=== PATIENT | male | born 1940 | race Caucasian/White ===

== ENCOUNTER 2018-01-27 11:51 | Emergency (ER) | payer BC ==
[~2018-01-27] VITALS: Ht 175.3 cm; Wt 108.9 kg
[~2018-01-27 11:51] MED LIST: ASPERDRINK81 MG PO; ASPIRIN EC81 M1 PO; ASPIRIN81 M2 PO; ATORVASTATIN CA40 MG PO; BUTRANS1 EAC1 TD; CELEBREX 200 M200 M1 PO; CIALIS2.5 MG PO; CIPRO500 MG PO; COUMADIN 10MG T10 M1 PO; COUMADIN 5 MG TA5 M1 PO; COZAAR 50 MG TA50 M2 PO; CRESTOR10 MG PO; CYMBALTA60 MG PO; ENOXAPARIN80 MG/0.8 SQ; FISH OIL 1,001000 MG PO; FLONASE 0.05%50 MCG NASAL; GABAPENTIN PO; GLIPIZIDE ER5 MG PO; GLUCOPHAGE500 MG PO; GLUCOSAMINE1000 MG PO; HIGH POTENCY C600 MG PO; HYDROCODONE-AP1 EACH PO; HYDROCODONE-APA1 TA1 PO; IBUPROFEN 600600 M1 PO; JANTOVEN5 MG PO; MIRALAX17 GM PO; MYSOLINE50 MG PO; NAMENDA 10 MG T10 MG PO; NAMENDA 5 MG TAB5 M1 PO; NEURONTIN 300300 M1 PO; NEURONTIN600 MG PO; NORCO 5-325 TA1 EACH PO; OXYBUTYNIN 5 MG5 M2 PO; PAROXETINE HCL30 MG PO; PAXIL 20 MG TAB20 MG PO; PRIMIDONE50 MG PO; PROSCAR 5MG TABL5 M1 PO; PROTONIX40 M1 PO; PYRIDIUM200 MG PO; SLEEP AID50 MG PO; TAMSULOSIN HCL0.4 M1 PO; TOVIAZ8 MG PO; TRILEPTAL150 MG PO; TRILEPTAL300 MG PO; TYLENOL325 MG PO; VITAMIN B-121000 MCG PO; VITAMIN E1000 UNI2 PO; VOLTAREN GEL 1100 G1 TOP; [UNRECOGNIZED DRUG - CODE] PO
[2018-01-27 12:45] LABS: ABSOLUTE BASOPHILS 0.1 thou/uL (0.0-0.2); ABSOLUTE EOSINOPHILS 0.1 thou/uL (0.0-0.7); ABSOLUTE LYMPHOCYTES 1.5 thou/uL (0.8-5.3); ABSOLUTE MONOCYTES 0.7 thou/uL (0.0-1.2); ABSOLUTE NEUTROPHILS 5.4 thou/uL (1.6-8.1); BASOPHILS 0.9 %; EOSINOPHILS 1.6 %; HEMATOCRIT 42.8 % (42.0-52.0); HEMOGLOBIN 14.4 gm/dL (14.0-18.0); LYMPHOCYTES 19.1 %; MCHC 33.7 g/dL (28.0-37.0); MCV 97.8 fL (80.0-100.0); NUCLEATED RBCS 0 /100WBC; PLATELET COUNT* 219 thou/uL (150-400); POLYS 69.4 %; RBC 4.38 mil/uL (4.50-6.00); RDW-CV 13.7 % (10.5-14.5); WBC 7.8 thou/uL (4.0-11.0)
[2018-01-27 12:53] LABS: PROTIME 68.1 Seconds (9.20-11.50)
[2018-01-27 12:56] LABS: INR 7.2
[2018-01-27 13:02] LABS: CALCIUM 8.7 mg/dL (8.5-10.1); CREATININE 1.3 mg/dL (0.6-1.3); POTASSIUM 4.3 mmol/L (3.5-5.1)
[2018-01-27 13:07] LABS: ALBUMIN 3.1 g/dL (3.4-5.0); TOTAL BILIRUBIN 0.3 mg/dL (<0.1-1.0); TOTAL PROTEIN 7.3 g/dL (6.4-8.2)
[2018-01-27 13:15] LABS: URINE BILIRUBIN NEGATIVE (Negative); URINE BLOOD NEGATIVE (Negative); URINE CLARITY CLEAR; URINE COLOR YELLOW; URINE GLUCOSE-RANDOM 3+ (Negative); URINE KETONES NEGATIVE (Negative); URINE LEUKOCYTES-REFLEX NEGATIVE (Negative); URINE NITRITE-REFLEX NEGATIVE (Negative); URINE PROTEIN NEGATIVE (Negative); URINE UROBILINOGEN 0.2 E.U./dl (0.2-1.0)
[2018-01-27 14:48] VITALS: BP 154/76
== END 2018-01-27 14:49 | disposition home or self-care (01) ==
LOC: M.ERS 11:51
PROVIDERS: Nurse Practitioner Family
DX: K59.00 Constipation, unspecified (principal); R79.1 Abnormal coagulation profile; E11.9 Type 2 diabetes mellitus without complications; F98.8 Other specified behavioral and emotional disorders with onset usually occurring in childhood and adolescence; F17.210 Nicotine dependence, cigarettes, uncomplicated; Z88.0 Allergy status to penicillin; Z88.8 Allergy status to other drugs, medicaments and biological substances

== ENCOUNTER 2018-05-25 12:38 | Emergency (ER) | payer BC ==
[~2018-05-25] VITALS: Ht 172.7 cm; Wt 99.8 kg
[2018-05-25] MEDS ORDERED: LIPITOR80 MG PO (13:00)
[2018-05-25] MEDS ORDERED: PAXIL10 MG PO (13:05)
[2018-05-25] MEDS ORDERED: MYSOLINE50 MG PO (13:06)
[2018-05-25] MEDS ORDERED: COUMADIN 5 MG TA5 M1 PO ×2 (13:08)
[2018-05-25] MEDS ORDERED: TRAMADOL 50 MG50 MG PO (13:09)
[2018-05-25] MEDS ORDERED: LINZESS145 MCG PO (13:10)
[2018-05-25 15:04] VITALS: BP 138/74
== END 2018-05-25 15:05 | disposition home or self-care (01) ==
LOC: M.ERS 12:38
DX: S42.254A Nondisplaced fracture of greater tuberosity of right humerus, initial encounter for closed fracture (principal); E11.9 Type 2 diabetes mellitus without complications; F17.210 Nicotine dependence, cigarettes, uncomplicated; Z96.653 Presence of artificial knee joint, bilateral; Z88.0 Allergy status to penicillin; Z88.8 Allergy status to other drugs, medicaments and biological substances; W06.XXXA Fall from bed, initial encounter; Y93.89 Activity, other specified; Y92.092 Bedroom in other non-institutional residence as the place of occurrence of the external cause; Y99.8 Other external cause status

== ENCOUNTER 2018-10-02 14:14 | Inpatient (IN) | payer BC ==
[~2018-10-02] VITALS: Ht 172.7 cm; Wt 97.5 kg
[~2018-10-02 14:14] MED LIST changes: +LINZESS145 MCG PO; +LIPITOR80 MG PO; +PAXIL10 MG PO; +TRAMADOL 50 MG50 MG PO
[2018-10-02 14:28] VITALS: BP 137/66
[2018-10-02 15:24] LABS: ABSOLUTE BASOPHILS 0.1 thou/uL (0.0-0.2); ABSOLUTE EOSINOPHILS 0.1 thou/uL (0.0-0.7); ABSOLUTE LYMPHOCYTES 1.3 thou/uL (0.8-5.3); ABSOLUTE MONOCYTES 0.8 thou/uL (0.0-1.2); ABSOLUTE NEUTROPHILS 7.5 thou/uL (1.6-8.1); BASOPHILS 1.3 %; EOSINOPHILS 1.2 %; HEMATOCRIT 45.7 % (42.0-52.0); HEMOGLOBIN 15.3 gm/dL (14.0-18.0); LYMPHOCYTES 13.6 %; MCH 32.9 pg (26.0-34.0); MCHC 33.4 g/dL (28.0-37.0); MCV 98.4 fL (80.0-100.0); MONOCYTES 7.6 %; MPV 8.6 fl. (7.2-11.1); NUCLEATED RBCS 0 /100WBC; PLATELET COUNT* 203 thou/uL (150-400); POLYS 76.3 %; RBC 4.64 mil/uL (4.50-6.00); RDW-CV 14.3 % (10.5-14.5); WBC 9.9 thou/uL (4.0-11.0)
[2018-10-02 15:33] LABS: ANION GAP 13 mmol/L (7-16); BUN 19 mg/dL (7-18); CHLORIDE 98 mmol/L (98-107); CO2 23 mmol/L (21-32); CREATININE 1.2 mg/dL (0.6-1.3); GLUCOSE 414 mg/dL (70-99); POTASSIUM 4.8 mmol/L (3.5-5.1); SODIUM 134 mmol/L (136-145)
[2018-10-02 15:34] LABS: APTT 59.5 Seconds (25.0-31.3); INR 3.1; PROTIME 31.8 Seconds (9.20-11.50)
[2018-10-02 15:43] LABS: BE -3.6 mmol/L (-2 to +3); HCO3 19.4 mmol/L (22.0-26.0); PCO2 30.2 mmHg (35.0-45.0); pH 7.426 (7.340-7.450)
[2018-10-02 15:43] LABS: ALBUMIN 3.1 g/dL (3.4-5.0); ALKALINE PHOSPHATASE 84 U/L (46-116); NT-PRO BRAIN NAT PEPTIDE 1218 pg/mL (<300); SGOT 24 U/L (15-37); SGPT 20 U/L (30-65); TOTAL BILIRUBIN 0.5 mg/dL (<0.1-1.0); TOTAL PROTEIN 7.6 g/dL (6.4-8.2); TROPONIN-I LEVEL <0.06 ng/mL (<0.06)
[2018-10-02 15:44] LABS: PO2 58.2 mmHg (75.0-100.0)
--- NOTE | 2018-10-02 16:31 | EKG ---
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 GARCIA : 1940 Requested By: Nayeli Veloz Order Number: [id number] MD: Yaya Pacheco Measurements Intervals [place] Rate: 84 P: [place]: QRS: -40 QRSD: 114 T: 62 QT: 381 QTc: 451 Interpretive Statements Atrial fibrillation Left anterior fascicular block Abnormal R-wave progression, late transition Compared to ECG 01/26/2014 11:09:17 Left anterior fascicular block now present Left-axis deviation no longer present Intraventricular conduction delay no longer present Electronically Signed On 10-02-2018 16:31:33 WARP KNIT OPERATOR by Yaya Pacheco [email or web address] <ELECTRONICALLY SIGNED> By: Yaya Pacheco MD, FACC 10/02/18 1631 1458 1458 Yaya Pacheco MD, FAC /EPI
[2018-10-02 17:39] VITALS: BP 134/80
[2018-10-02 18:00] VITALS: BP 151/84
[2018-10-02 20:15] VITALS: BP 136/75
[2018-10-02] MEDS ORDERED: VITAMINC500 PO (20:23)
[2018-10-02] MEDS ORDERED: OMEGA-31000 M1 PO (20:23)
[2018-10-02] MEDS ORDERED: VITAMIN E400 UNIT PO (20:24)
[2018-10-02] MEDS ORDERED: OXYCODONE HCL10 MG PO (20:24)
[2018-10-02] MEDS ORDERED: ASPIR 8181 MG PO (20:24)
[2018-10-02] MEDS ORDERED: METFORMIN HCL500 MG PO (20:25)
[2018-10-02] MEDS ORDERED: PROSCAR 5MG TABL5 MG PO (20:25)
[2018-10-02] MEDS ORDERED: MYSOLINE50 MG PO (20:26)
[2018-10-02] MEDS ORDERED: COUMADIN 5 MG TA5 M1 PO ×3 (20:27→20:29)
[2018-10-02] MEDS ORDERED: GLUCOTROL5 MG PO (20:27)
[2018-10-02] MEDS ORDERED: LIPITOR80 MG PO (20:27)
[2018-10-02] MEDS ORDERED: PROTONIX40 M1 PO (20:27)
[2018-10-02] MEDS ORDERED: CYMBALTA60 MG PO (20:30)
[2018-10-02] MEDS ORDERED: PROPRANOLOL 1010 MG PO (20:30)
[2018-10-02] MEDS ORDERED: TRAMADOL 50 MG50 MG PO (20:30)
[2018-10-02] MEDS ORDERED: NORCO 5-325 TA1 EACH PO (20:31)
[2018-10-02] MEDS ORDERED: MELATONIN5 M1 PO (20:32)
[2018-10-02 22:11] LABS: ALBUMIN 2.9 g/dL (3.4-5.0); CALCIUM 8.8 mg/dL (8.5-10.1); CREATININE 1.1 mg/dL (0.6-1.3); PHOSPHORUS* 2.7 mg/dL (2.5-4.9); POTASSIUM 4.4 mmol/L (3.5-5.1)
[2018-10-03 01:07] VITALS: BP 136/71
[2018-10-03 04:00] VITALS: BP 147/77
[2018-10-03 06:17] LABS: ALBUMIN 2.8 g/dL (3.4-5.0); CALCIUM 8.4 mg/dL (8.5-10.1); CREATININE 1.1 mg/dL (0.6-1.3); POTASSIUM 4.3 mmol/L (3.5-5.1); TOTAL BILIRUBIN 0.5 mg/dL (<0.1-1.0); TOTAL PROTEIN 6.3 g/dL (6.4-8.2)
[2018-10-03 07:44] VITALS: BP 108/73
[2018-10-03 10:59] LABS: URINE BILIRUBIN NEGATIVE (Negative); URINE BLOOD NEGATIVE (Negative); URINE CLARITY CLEAR; URINE COLOR YELLOW; URINE GLUCOSE-RANDOM 2+ (Negative); URINE KETONES TRACE (Negative); URINE LEUKOCYTES-REFLEX NEGATIVE (Negative); URINE NITRITE-REFLEX NEGATIVE (Negative); URINE PROTEIN 1+ (Negative); URINE SPECIFIC GRAVITY 1.025 (1.005-1.030); URINE UROBILINOGEN 0.2 E.U./dl (0.2-1.0)
[2018-10-03 12:00] VITALS: BP 127/58
[2018-10-03 19:21] LABS: CALCIUM 8.4 mg/dL (8.5-10.1); CREATININE 1.2 mg/dL (0.6-1.3); POTASSIUM 3.9 mmol/L (3.5-5.1)
[2018-10-03 19:22] LABS: INR 3.3; PROTIME 33.8 Seconds (9.20-11.50)
[2018-10-03 20:15] VITALS: BP 118/55
[2018-10-04] VITALS: BP 131/70
[2018-10-04 04:00] VITALS: BP 118/53
[2018-10-04 05:08] LABS: ABSOLUTE BASOPHILS 0.1 thou/uL (0.0-0.2); ABSOLUTE EOSINOPHILS 0.1 thou/uL (0.0-0.7); ABSOLUTE LYMPHOCYTES 1.3 thou/uL (0.8-5.3); ABSOLUTE MONOCYTES 0.7 thou/uL (0.0-1.2); BASOPHILS 1.2 %; EOSINOPHILS 1.6 %; HEMATOCRIT 38.6 % (42.0-52.0); LYMPHOCYTES 15.5 %; MCHC 33.5 g/dL (28.0-37.0); MCV 98.5 fL (80.0-100.0); MONOCYTES 8.1 %; MPV 7.8 fl. (7.2-11.1); NUCLEATED RBCS 0 /100WBC; PLATELET COUNT* 185 thou/uL (150-400); POLYS 73.6 %; RBC 3.92 mil/uL (4.50-6.00); WBC 8.2 thou/uL (4.0-11.0)
[2018-10-04 05:18] LABS: HEMOGLOBIN 12.9 gm/dL (14.0-18.0)
[2018-10-04 05:37] LABS: ALBUMIN 2.5 g/dL (3.4-5.0); CALCIUM 8.2 mg/dL (8.5-10.1); CREATININE 1.1 mg/dL (0.6-1.3); POTASSIUM 4.2 mmol/L (3.5-5.1); TOTAL BILIRUBIN 0.5 mg/dL (<0.1-1.0); TOTAL PROTEIN 6.2 g/dL (6.4-8.2)
[2018-10-04 08:20] VITALS: BP 125/70
[2018-10-04 12:00] VITALS: BP 128/73
--- NOTE | 2018-10-04 15:15 | 2DMMODE ---
[place] [address] 2 D/M-MODE ECHOCARDIOGRAM Name: ENRICO LEÓN Room: [address] IN [facility]#: [id number] Admission: 10/02/18 Attend Phys: Oswaldo Nichole Discharge: Date of : 42 Date of Service: 10/04/18 1515 Report #: [id number] THIS REPORT FOR: //name// ADDENDUM APPROVED REPORT Study performed: 10/04/2018 11:56:27 EXAM: Comprehensive 2D, Doppler, and color-flow Echocardiogram Patient Location: In-Patient Room #: [facility] Status: routine BSA: 2.11 HR: 64 bpm BP: 125/70 mmHg Rhythm: Atrial Fibrillation Other Information Study Quality: Good Indications COPD Atrial Fibrillation Dyspnea 2D Dimensions IVSd: 17.48 (7-11mm) LVOT Diam: 21.97 (18-24mm) LVDd: 49.74 mm PWd: 14.83 (7-11mm) Ascending Ao: 42.34 (22-36mm) LVDs: 38.67 (25-40mm) Aortic Root: 35.11 mm Volumes Left Atrial Volume (Systole) LA ESV Index: 48.60 mL/m2 Aortic Valve AoV Peak Luigi.: 1.46 m/s AO Peak Gr.: 8.53 mmHg LVOT Max P.60 mmHg AO Mean Gr.: 5.00 mmHg LVOT Mean P.02 mmHg LVOT Max V: 0.95 m/s AO V2 VTI: 26.32 cm LVOT Mean V: 0.66 m/s HANNA (VTI): 2.65 cm2 LVOT V1 VTI: 18.39 cm Mitral Valve MV Decel. Time: 160.19 [place] [address] 2 D/M-MODE ECHOCARDIOGRAM Name: ENRICO LEÓN Room: [address] IN ..#: [id number] Admission: 10/02/18 Attend Phys: Oswaldo Nichole Discharge: Date of : 42 Date of Service: 10/04/18 1515 Report #: [id number] MV PHT: 46.46 ms MVA (PHT): 4.74 cm2 TDI Medial E' Luigi.: 0.09 m/s Lateral E' Luigi.: 0.12 m/s Pulmonary Valve PV Peak Luigi.: 0.76 m/s PV Peak Gr.: 2.33 mmHg Tricuspid Valve RAP Estimate: 5.00 mmHg TR Peak Gr.: 24.50 mmHg RVSP: 29.00 mmHg PA Pressure: 29.00 mmHg Left Ventricle The left ventricle is normal size. There is normal LV segmental wall motion. Moderate concentric left ventricular hypertrophy. Left ventricular systolic function is normal. LVEF is 50-55%. This study is not technically sufficient to allow evaluation of the LV diastolic function due to atrial fibrillation. Right Ventricle Right ventricle is mildly dilated. The right ventricular systolic function is normal. Atria Left atrium is severely dilated. Right atrium is moderately dilated. Aortic Valve The aortic valve is normal in structure. Mechanical aortic valve is present. No aortic regurgitation is present. There is no aortic valvular stenosis. Mitral Valve The mitral valve is normal in structure. Mild mitral regurgitation. No evidence of mitral valve stenosis. Tricuspid Valve The tricuspid valve is normal in structure. Trace tricuspid regurgitation. No pulmonary hypertension. Pulmonic Valve The pulmonary valve is normal in structure. There is no pulmon[place] [address] 2 D/M-MODE ECHOCARDIOGRAM Name: ENRICO LEÓN Room: [address]#: [id number] Admission: 10/02/18 Attend Phys: Oswaldo Nichole Discharge: Date of : 42 Date of Service: 10/04/18 1515 Report #: [id number] Great Vessels Aortic root is dilated. IVC is normal in size and collapses >50% with inspiration. Pericardium There is no pericardial effusion. <Conclusion> The left ventricle is normal size. Moderate concentric left ventricular hypertrophy. LVEF is 50-55%. This study is not technically sufficient to allow evaluation of the LV diastolic function due to atrial fibrillation. Right ventricle is mildly dilated. Left atrium is severely dilated. Right atrium is moderately dilated. Mechanical aortic valve is present. No aortic regurgitation is present. There is no aortic valvular stenosis. Mild mitral regurgitation. Trace tricuspid regurgitation. No pulmonary hypertension. IVC is normal in size and collapses >50% with inspiration. Aortic root is dilated. <ELECTRONICALLY SIGNED> By: Juan Russo MD, FACC 10/04/18 1515 14 14 Juan Russo MD, FACC /INF
[2018-10-04 16:00] VITALS: BP 152/71
[2018-10-04 19:56] LABS: INR 2.4; PROTIME 24.4 Seconds (9.20-11.50)
[2018-10-04 21:00] VITALS: BP 143/76
[2018-10-05] VITALS: BP 97/50
[2018-10-05 04:00] VITALS: BP 124/67
[2018-10-05 05:11] LABS: ALBUMIN 2.6 g/dL (3.4-5.0); CALCIUM 8.4 mg/dL (8.5-10.1); CREATININE 1.1 mg/dL (0.6-1.3); POTASSIUM 3.8 mmol/L (3.5-5.1); TOTAL BILIRUBIN 0.5 mg/dL (<0.1-1.0); TOTAL PROTEIN 6.5 g/dL (6.4-8.2)
[2018-10-05 08:20] VITALS: BP 137/81
[2018-10-05 12:39] VITALS: BP 132/70
[2018-10-05 19:31] LABS: INR 1.5
[2018-10-05 20:30] VITALS: BP 128/68
[2018-10-06 05:24] LABS: ALBUMIN 2.9 g/dL (3.4-5.0); CALCIUM 8.7 mg/dL (8.5-10.1); CREATININE 1.1 mg/dL (0.6-1.3); POTASSIUM 4.7 mmol/L (3.5-5.1); TOTAL BILIRUBIN 0.6 mg/dL (<0.1-1.0); TOTAL PROTEIN 6.5 g/dL (6.4-8.2)
[2018-10-06 09:00] VITALS: BP 141/79
[2018-10-06 16:00] VITALS: BP 148/62
[2018-10-06 19:50] LABS: INR 1.2; PROTIME 12.5 Seconds (9.20-11.50)
[2018-10-06 21:30] VITALS: BP 125/60
[2018-10-07 04:57] LABS: INR 1.2; PROTIME 12.3 Seconds (9.20-11.50)
[2018-10-07 05:12] LABS: ALBUMIN 2.7 g/dL (3.4-5.0); CALCIUM 8.7 mg/dL (8.5-10.1); CREATININE 1.2 mg/dL (0.6-1.3); TOTAL BILIRUBIN 0.5 mg/dL (<0.1-1.0); TOTAL PROTEIN 6.5 g/dL (6.4-8.2)
[2018-10-07 05:13] LABS: POTASSIUM 3.4 mmol/L (3.5-5.1)
[2018-10-07 08:30] VITALS: BP 122/65
[2018-10-07 16:00] VITALS: BP 123/53
[2018-10-07 20:33] VITALS: BP 103/67
[2018-10-08 08:00] VITALS: BP 125/74
[2018-10-08 16:00] VITALS: BP 109/62
[2018-10-08 21:38] VITALS: BP 126/62
[2018-10-09 07:30] VITALS: BP 130/67
[2018-10-09] MEDS ORDERED: MUCINEX1200 MG PO (11:37)
[2018-10-09] MEDS ORDERED: MIRALAX17 GM PO (11:37)
[2018-10-09] MEDS ORDERED: COUMADIN 5 MG TA5 M1 PO (11:50)
[2018-10-09 14:17] VITALS: BP 130/67
== END 2018-10-09 16:45 | DRG 871 ==
LOC: M.ERS 14:14 → M.TBA-ER 16:38 → M.2W 16:38 → M.ORTHSURG 10-05 16:06
PROVIDERS: Personal Emergency Response Attendant; ADMIT Internal Medicine
DX: A41.9 Sepsis, unspecified organism (principal); J18.9 Pneumonia, unspecified organism; I50.33 Acute on chronic diastolic (congestive) heart failure; J44.1 Chronic obstructive pulmonary disease with (acute) exacerbation; J44.0 Chronic obstructive pulmonary disease with (acute) lower respiratory infection; K57.92 Diverticulitis of intestine, part unspecified, without perforation or abscess without bleeding; J98.11 Atelectasis; F17.210 Nicotine dependence, cigarettes, uncomplicated; N40.0 Benign prostatic hyperplasia without lower urinary tract symptoms; E11.65 Type 2 diabetes mellitus with hyperglycemia; I25.10 Atherosclerotic heart disease of native coronary artery without angina pectoris; Z79.82 Long term (current) use of aspirin; Z79.1 Long term (current) use of non-steroidal anti-inflammatories (NSAID); Z79.899 Other long term (current) drug therapy; Z88.0 Allergy status to penicillin; Z88.5 Allergy status to narcotic agent; Z79.01 Long term (current) use of anticoagulants; Z79.84 Long term (current) use of oral hypoglycemic drugs

== ENCOUNTER 2018-12-04 16:09 | Inpatient (IN) | payer BC ==
[~2018-12-04] VITALS: Ht 172.7 cm; Wt 94.4 kg
--- NOTE | ~2018-12-04 | EEG ---
[address] [address] EEG STUDY REPORT Name: ENRICO LEÓN Room: [address]R#: [id number] Admission: 12/04/18 Attend Phys: Tony Cerda MD Discharge: 12/06/18 Date of : 42 Report #: [id number] THIS REPORT FOR: //name// CC: Tony Kenny [place] DATE OF SERVICE: 12/05/2018 This patient is being evaluated for altered mental status. This patient's EEG was done by placing the electrodes by standard 10-20 system of electrode placement. Both referential and sequential montages were used for recording. Background activity in this patient's EEG is about 9 Hz and 30 microvolt. This is a symmetrical activity. The patient went to sleep that is associated with bilateral slowing and vertex sharp waves. Throughout the record, no active epileptiform activity was noticed. Photic stimulation is unremarkable. EKG channel does demonstrate RR interval variability. IMPRESSION: This patient's EEG is intermixed with slight theta range slowing on both sides. That is a nonspecific abnormality, which can occur with drowsiness, effect of psychotropic medication. It is a nonspecific finding and can occur in multiple other etiologies. There is a variability in the heart rate, which can be further worked up as clinically indicated. By: [id number] avila Medina
--- NOTE | ~2018-12-04 | CON ---
[address] [address] CONSULTATION Name: ENRICO LEÓN Room: [address] IN M.R.#: [id number] Admission: 12/04/18 Attend Phys: Tony Cerda MD Discharge: Date of : 42 Report #: [id number] THIS REPORT FOR: //name// CC: Tony Cerda [facility] DATE OF SERVICE: 12/05/2018 HISTORY OF PRESENT ILLNESS: This is a 78-year-old male patient who is not a very good historian. He is very hard of hearing. History is very difficult to get in this patient. I reviewed the patient's record and I talked to him. He said he had an acute onset of dizziness yesterday. It happened spontaneously without any trauma. It was severe. He does not know anything which made it better or worse. His blood sugar was 322, but his blood pressure was high. There is some history that he was slumped over. Since then, he has returned back to his baseline. He does not believe he had dizziness now. He had an episode of dizziness several years ago. He does not know when it was, but he said that resolved spontaneously also. REVIEW OF SYSTEMS: A 14-point review of system was carried out. He has history of atrial fibrillation and he is on chronic anticoagulation. He does have a history of hematuria, COPD as per records. He also had history of urinary retention and hyperglycemia. His blood pressure was high when he came in. He is very hard of hearing and he takes multiple medications, part of them is for the pain, but I do not know why he takes Mysoline. Hopefully, we will be able to contact some family members who can provide some better history. He had bilateral tubes in the ear. He has history of valve replacement and coronary artery disease. He had stent put in the past. He does have some COPD. He denies any GI, , musculoskeletal, constitutional, dermatological, hematological, psychiatric, throat, allergic symptom associated with present symptomatology. PAST MEDICAL HISTORY: Positive for dizziness. FAMILY HISTORY: Negative for any early age stroke. SOCIAL HISTORY: He has a history of smoking. PHYSICAL EXAMINATION: His higher function is very difficult to carry out because he is hard of hearing, but he did not do very well with mentation. When I tried to ask him what month it is, he could not tell me. I do not know whether it is because of hearing problem or he just cannot tell me. His speech looks intact. His memory and fund of knowledge is diminished. Cranial nerve examination 2-12 looks unremarkable. He moves all four extremities. His reflexes are diminished in generalized fashion. He has symmetrical tone. He does not have any cerebellar signs. Ultimately, [place] [address] CONSULTATION Name: ENRICO LEÓN Room: [address] IN [facility]#: [id number] Admission: 12/04/18 Attend Phys: Tony Cerda MD Discharge: Date of : 42 Report #: [id number] position sense on both sides, but it took him a long time and I suspect that was because of his hearing deficit. He has a history of atrial fibrillation. His pulses are difficult to feel. He has no edema, cyanosis or jaundice. He does have some rhonchi. He does not appear to be in marked respiratory difficulty. His blood pressure is 145/71, respiration is 16, pulse is 63, temperature is 97.9. LABORATORY DATA: Indicate a white count of 6.4, normal sodium and high blood sugar. His CT scan was unremarkable. I talked to him and he told me there is no contraindication for doing an MRI in this patient. IMPRESSION: Difficult to form in this patient because the history is so poor, but it is more likely that he had this episode because of systemic problems including cardiac. However, because of the fact that he does have a cardiac history, I will rule out any SENIOR ADVISORY pathology even if he is anticoagulated and for that, I did order an MRI because he indicated that there is no contraindication for MRI. When he came in, his INR was therapeutic. He is on Mysoline, which will tend to nullify the effect of Coumadin to some extent, but his INR was therapeutic when he came in. So, I do not think that is a problem, but I will check him for any stroke by doing an MRI. RECOMMENDATIONS: 1. MRI of the brain. 2. MRA of the head and neck. 3. I will get an EEG because the patient's mentation was not very good, although I do not know what his baseline is. 4. I will check a TSH and vitamin B12. 5. I discussed all of it with the patient and he understands and he wants to follow this plan. Thank you very much for this referral and if you have any question, please feel free to contact me. By: [id number] Lacy MD /kapil
[~2018-12-04 16:09] MED LIST changes: +ASPIR 8181 MG PO; +GLUCOTROL5 MG PO; +MELATONIN5 M1 PO; +METFORMIN HCL500 MG PO; +MUCINEX1200 MG PO; +OMEGA-31000 M1 PO; +OXYCODONE HCL10 MG PO; +PROPRANOLOL 1010 MG PO; +PROSCAR 5MG TABL5 MG PO; +VITAMIN E400 UNIT PO; +VITAMINC500 PO
[2018-12-04 16:19] VITALS: BP 163/73
[2018-12-04 16:42] LABS: ABSOLUTE BASOPHILS 0.1 thou/uL (0.0-0.2); ABSOLUTE EOSINOPHILS 0.1 thou/uL (0.0-0.7); ABSOLUTE LYMPHOCYTES 1.2 thou/uL (0.8-5.3); ABSOLUTE MONOCYTES 0.6 thou/uL (0.0-1.2); ABSOLUTE NEUTROPHILS 9.4 thou/uL (1.6-8.1); BASOPHILS 0.6 %; EOSINOPHILS 1.1 %; HEMATOCRIT 47.1 % (42.0-52.0); HEMOGLOBIN 15.8 gm/dL (14.0-18.0); LYMPHOCYTES 10.2 %; MCHC 33.5 g/dL (28.0-37.0); MCV 98.5 fL (80.0-100.0); MPV 7.6 fl. (7.2-11.1); NUCLEATED RBCS 0 /100WBC; PLATELET COUNT* 242 thou/uL (150-400); POLYS 83.1 %; RBC 4.78 mil/uL (4.50-6.00); RDW-CV 14.1 % (10.5-14.5); WBC 11.4 thou/uL (4.0-11.0)
[2018-12-04 16:50] LABS: APTT 38.7 Seconds (25.0-31.3); INR 2.4; PROTIME 24.2 Seconds (9.20-11.50)
[2018-12-04 16:52] LABS: ANION GAP 6 mmol/L (7-16); BUN 14 mg/dL (7-18); CALCIUM 9.3 mg/dL (8.5-10.1); CHLORIDE 97 mmol/L (98-107); CO2 32 mmol/L (21-32); CREATININE 1.2 mg/dL (0.6-1.3); GLUCOSE 300 mg/dL (70-99); POTASSIUM 4.4 mmol/L (3.5-5.1); SODIUM 135 mmol/L (136-145)
[2018-12-04 17:03] LABS: ALBUMIN 3.7 g/dL (3.4-5.0); ALKALINE PHOSPHATASE 99 U/L (46-116); NT-PRO BRAIN NAT PEPTIDE 1042 pg/mL (<300); SGOT 21 U/L (15-37); SGPT 32 U/L (30-65); TOTAL BILIRUBIN 0.4 mg/dL (<0.1-1.0); TOTAL PROTEIN 8.2 g/dL (6.4-8.2); TROPONIN-I LEVEL <0.06 ng/mL (<0.06)
--- NOTE | 2018-12-04 17:07 | NUR ---
DR ROGERS TO EVALUATE
[2018-12-04 17:57] LABS: URINE BILIRUBIN NEGATIVE (Negative); URINE BLOOD NEGATIVE (Negative); URINE CLARITY CLEAR; URINE COLOR YELLOW; URINE GLUCOSE-RANDOM 3+ (Negative); URINE KETONES NEGATIVE (Negative); URINE LEUKOCYTES-REFLEX NEGATIVE (Negative); URINE NITRITE-REFLEX NEGATIVE (Negative); URINE PROTEIN TRACE (Negative); URINE SPECIFIC GRAVITY 1.015 (1.005-1.030); URINE UROBILINOGEN 0.2 E.U./dl (0.2-1.0)
[2018-12-04 19:58] VITALS: BP 147/57
[2018-12-04 20:18] VITALS: BP 143/60
[2018-12-05] VITALS (7 sets, daily range): BP systolic 128–146; BP diastolic 56–78
--- NOTE | 2018-12-05 03:16 | NUR ---
ASSUMED CARE OF PT AT 2009. PT IS ALERT AND ORIENTED. VSS. PERRLA. PT NIH IS 0. NEURO CONSULT DONE. PT DENIED DIZZINESS AT THIS TIME. PT IS IN A FIB ON THE TELEMETRY. PT IS RESTING COMFORTABLY IN BED. RESPIRATIONS ARE EVEN AND NONLABORED. WILL CONTINUE TO MONITOR PT.
[2018-12-05 04:57] LABS: ABSOLUTE EOSINOPHILS 0.2 thou/uL (0.0-0.7); ABSOLUTE LYMPHOCYTES 1.7 thou/uL (0.8-5.3); ABSOLUTE MONOCYTES 0.6 thou/uL (0.0-1.2); ABSOLUTE NEUTROPHILS 3.9 thou/uL (1.6-8.1); BASOPHILS 0.7 %; EOSINOPHILS 2.8 %; HEMATOCRIT 42.2 % (42.0-52.0); HEMOGLOBIN 14.5 gm/dL (14.0-18.0); LYMPHOCYTES 26.1 %; MCH 33.7 pg (26.0-34.0); MCHC 34.4 g/dL (28.0-37.0); MCV 98.1 fL (80.0-100.0); MPV 7.8 fl. (7.2-11.1); NUCLEATED RBCS 0 /100WBC; PLATELET COUNT* 206 thou/uL (150-400); POLYS 61.4 %; RDW-CV 13.9 % (10.5-14.5); WBC 6.4 thou/uL (4.0-11.0)
[2018-12-05 05:06] LABS: INR 2.2; PROTIME 22.2 Seconds (9.20-11.50)
[2018-12-05 05:15] LABS: ANION GAP 6 mmol/L (7-16); BUN 15 mg/dL (7-18); CALCIUM 8.7 mg/dL (8.5-10.1); CHLORIDE 102 mmol/L (98-107); CHOLESTEROL 104 mg/dL (<200); CO2 31 mmol/L (21-32); CREATININE 1.1 mg/dL (0.6-1.3); GLUCOSE 260 mg/dL (70-99); HDL CHOLESTEROL 32 mg/dL (>40); LDL CHOLESTEROL 49 mg/dL (<100); POTASSIUM 4.8 mmol/L (3.5-5.1); SERUM ASSESSMENT Clear; SODIUM 139 mmol/L (136-145); TC:HDL 3.3 Ratio (Not establshd); TRIGLYCERIDE 118 mg/dL (<150); VLDL 24 mg/dL (<40)
--- NOTE | 2018-12-05 10:54 | NUR ---
Pt is A&O. [place]. Known to CM from previous hospital stay. Pt resides at home alone, has a supportive family that assists as needed. Pt has a walker and cane that he can use as needed. Pt stated that he is still able to do some of his housekeeping and cooking, Pt stated that he has a lady that comes to clean also. Pt's family provided transportation and do the grocery shopping. Hx of . Hx of skilled at [facility]. Pt's goal is to return home at in. Following.
--- NOTE | 2018-12-05 14:38 | 2DMMODE ---
[place] [address] 2 D/M-MODE ECHOCARDIOGRAM Name: ENRICO LEÓN Room: [address] IN [facility]#: [id number] Admission: 12/04/18 Attend Phys: Tony Cerda, Discharge: Date of : 42 Date of Service: 12/05/18 1438 Report #: [id number] THIS REPORT FOR: //name// APPROVED REPORT Study performed: 12/05/2018 10:03:36 EXAM: Comprehensive 2D, Doppler, and color-flow Echocardiogram Patient Location: In-Patient Room #: [facility] Status: routine BSA: 2.11 HR: 65 bpm BP: 145/71 mmHg Rhythm: Atrial Fibrillation Other Information Study Quality: Good Indications CVA/TIA Atrial Fibrillation Echo Enhancing Agent Indication: Rule out Shunt Agent(s) / Amount(s) Used: Agitated Saline 10 cc 2D Dimensions IVSd: 17.09 (7-11mm) LVOT Diam: 20.51 (18-24mm) LVDd: 46.85 mm PWd: 14.95 (7-11mm) Ascending Ao: 41.95 (22-36mm) LVDs: 27.28 (25-40mm) Aortic Root: 34.29 mm Volumes Left Atrial Volume (Systole) LA ESV Index: 51.50 mL/m2 Aortic Valve AoV Peak Luigi.: 1.94 m/s AO Peak Gr.: 15.04 mmHg LVOT Max P.59 mmHg AO Mean Gr.: 7.66 mmHg LVOT Mean P.17 mmHg LVOT Max V: 1.07 m/s AO V2 VTI: 36.53 cm LVOT Mean V: 0.68 m/s HANNA (VTI): 1.91 cm2 LVOT V1 VTI: 21.17 [place] [address] 2 D/M-MODE ECHOCARDIOGRAM Name: ENRICO LEÓN Room: [address] IN [facility]#: [id number] Admission: 12/04/18 Attend Phys: Tony Cerda, Discharge: Date of : 42 Date of Service: 12/05/18 1438 Report #: [id number] Mitral Valve MV Decel. Time: 216.40 ms MV PHT: 62.76 ms MVA (PHT): 3.51 cm2 TDI Medial E' Luigi.: 0.07 m/s Lateral E' Luigi.: 0.14 m/s Pulmonary Valve PV Peak Luigi.: 0.80 m/s PV Peak Gr.: 2.58 mmHg Tricuspid Valve RAP Estimate: 5.00 mmHg TR Peak Gr.: 34.80 mmHg RVSP: 39.00 mmHg PA Pressure: 39.00 mmHg Left Ventricle The left ventricle is normal size. There is normal LV segmental wall motion. Borderline concentric left ventricular hypertrophy. Left ventricular systolic function is normal. LVEF is 55%. This study is not technically sufficient to allow evaluation of the LV diastolic function due to atrial fibrillation. Right Ventricle The right ventricle is normal size. The right ventricular systolic function is normal. Atria Left atrium is mildly dilated. The right atrium size is normal. Aortic Valve Mild aortic valve sclerosis. Mechanical aortic valve is present. No aortic regurgitation is present. No hemodynamically significant valvular aortic stenosis. Mitral Valve There is mitral annular calcification. Mild mitral regurgitation. No evidence of mitral valve stenosis. Tricuspid Valve The tricuspid valve is normal in structure. Mild tricuspid regurgitation. Mild [place] [address] 2 D/M-MODE ECHOCARDIOGRAM Name: ENRICO LEÓN Room: [address]#: [id number] Admission: 12/04/18 Attend Phys: Tony Cerda, Discharge: Date of : 42 Date of Service: 12/05/18 1438 Report #: [id number] Pulmonic Valve The pulmonary valve is normal in structure. There is no pulmonic valvular regurgitation. Great Vessels The aortic root is normal in size. IVC is normal in size and collapses >50% with inspiration. Pericardium There is no pericardial effusion. <Conclusion> The left ventricle is normal size. Borderline concentric left ventricular hypertrophy. Left ventricular systolic function is normal. LVEF is 55%. This study is not technically sufficient to allow evaluation of the LV diastolic function due to atrial fibrillation. The right ventricle is normal size. Left atrium is mildly dilated. Mild aortic valve sclerosis. No aortic regurgitation is present. No hemodynamically significant valvular aortic stenosis. There is mitral annular calcification. Mild mitral regurgitation. No evidence of mitral valve stenosis. The tricuspid valve is normal in structure. IVC is normal in size and collapses >50% with inspiration. There is no pericardial effusion. There is normal LV segmental wall motion. Mechanical aortic valve is present. <ELECTRONICALLY SIGNED> By: Toñito Sheridan MD, FACC 12/05/18 1438 1438 1438 Toñito Sheridan MD, FACC /INF
[2018-12-05] MEDS ORDERED: DOXYCYCLINE 10100 MG PO (14:44)
--- NOTE | 2018-12-05 18:04 | EKG ---
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 : 1940 Requested By: Kendall Rizo Order Number: [id number] MD: Juan Russo Measurements Intervals [place] Rate: 56 P: [place]: QRS: -34 QRSD: 117 T: 42 QT: 439 QTc: 424 Interpretive Statements Atrial fibrillation Nonspecific intraventricular conduction delay Inferior infarct, old Compared to ECG 10/02/2018 14:58:01 Intraventricular conduction delay now present Myocardial infarct finding now present Left anterior fascicular block no longer present Electronically Signed On 12-05-2018 18:04:38 WASTE OIL PUMPER by Juan Russo [email or web address] <ELECTRONICALLY SIGNED> By: Juan Russo MD, FACC 12/05/18 1804 1632 1632 Juan Russo MD, FAC /EPI
[2018-12-05 18:11] LABS: GLYCOHEMOGLOBIN (HGB A1C) 11.2 % (4.8-5.6)
--- NOTE | 2018-12-05 20:07 | NUR ---
VSS, ASSUMED CARE OF PT IN THE AM, ASSESSMENT PERFORMED AND CHARTED, FALL PRECAUTIONS IN PLACE AND CALL LIGHT IN REACH, PT IS A&O4 AND IS [place], HE IS AFIB ON THE MONITOR, UP WITH ONE AND A CANE, STATES PAIN IN HIS BACK, PT GOAL IS TO IMPROVE ACTIVITY AND WORK WITH PT/OT, AT THIS TIME HOURLY ROUNDS COMPLETED AND CHARTED CHECKED, NO OTHER STAUTUS CHANGE NOTED,
[2018-12-06] VITALS: BP 131/68
[2018-12-06 04:00] VITALS: BP 144/69
[2018-12-06 05:21] LABS: INR 1.7; PROTIME 17.3 Seconds (9.20-11.50)
--- NOTE | 2018-12-06 06:50 | NUR ---
ASSUMED PT CARE @ 1930. PT AWAKE AND RESPONSIVE. HARD OF HEARING. VSS. ON ROOM AIR, NO DESATURATIONS NOTED. NON DESTRUCTIVE TESTER IN PLACE TRACING AFIB. DENIES CHEST PAIN. ABLE TO SLEEP THROUGH THE NIGHT. HOURLY MONITORING DONE FOR PT SAFETY. FALL PRECATIONS IN PLACE.
[2018-12-06 08:00] VITALS: BP 151/61
[2018-12-06 09:53] VITALS: BP 128/78
--- NOTE | 2018-12-06 09:56 | NUR ---
COMMERCIAL LOAN ANALYST SPOKE TO THE PATIENT AND HIS SON CHARBEL TO DISCUSS DISCHARGE PLANNING NEEDS. PATIENT'S SON CHARBEL INFORMS THAT THE PATIENT HAD RECENTLY BEEN ON-SERVICE WITH [facility] AND HE WOULD LIKE FOR HIM TO USE THEIR SEVICES AT D/C. CHARBEL ALSO REQUEST THAT [facility] CONTACT HIM TO ARRNAGE HH VISIT. D/C COOKING TEACHER SPOKE TO INTAKE WITH [facility] TO INFORM OF THE REFERRAL FOR HH AND FAXED THE PATIENT'S FACESHEET, H&P, AND D/C ORDERS. D/C COOKING TEACHER ALSO INFORMED INTAKE OF THE NEED TO CONTACT THE PATIENT'S SON TO ARRANGE VISIT. CM WILL REMAIN AVAILABLE TO ASSIST AND FOLLOW NEEDED.
[2018-12-06 11:44] VITALS: BP 140/46
--- NOTE | 2018-12-06 12:37 | NUR ---
ASSUMED PT CARE AT 0730, FULL ASSESMENT DONE CHARTED. PT A/O X4, VERY [place], DENIES PAIN, UP WITH ASSIST, FALL PRECAUTIONS IN PLACE. RECIEVED DISCHARGE ORDERS, CARDIOLOGY DC'D PROPANOLOL, DISCUSSED CHANGES WITH GRANDDTR, IV REMOVED AND PT LEFT WITH BELONGINGS AT APPROX 1335
--- NOTE | 2018-12-07 13:40 | CON ---
[address] [address] CONSULTATION Name: ENRICO LEÓN Room: [address] IN .R.#: [id number] Admission: 12/04/18 Attend Phys: Tony Cerda MD Discharge: 12/06/18 Date of : 42 Report #: [id number] THIS REPORT FOR: //name// CC: Tony Kenny [place] INPATIENT CONSULTATION CHIEF COMPLAINT: AFib, bradycardia. HISTORY OF PRESENT ILLNESS: The patient is a 78-year-old man who was admitted on 12/04/2018 with dizziness and was mildly bradycardic with heart rates in the 40s-50s. He was noted to be on beta blockers. He has a significant cardiovascular history. He has a history of prior aortic valve replacement over 20 years ago, he thinks at [facility], and has been followed closely by Dr. Reynolds at [facility]. He was admitted and ruled out for [place]. He is a poor historian, but his hemodynamics improved after holding his beta kaitlynn and we were asked to see him in consultation. There was concern that he might have had a neurologic event and he was seen by Neurology. At this time, he is without complaints of dizziness, lightheadedness, chest pain, pressure or shortness of breath. PAST MEDICAL HISTORY: He has a history of aortic valve replacement; echocardiogram performed on 12/05/2018 showed grossly normal LV function, ejection fraction of 55%. There was no prosthetic aortic valve stenosis. He has a history of COPD, coronary artery disease, warfarin anticoagulation and PCI, details not known. MEDICATIONS: Home medications include vitamin C, [place] 3 fatty acids, aspirin 81 mg, metformin 500 mg p.o. b.i.d., primidone, Protonix, glipizide 5 mg daily, Lipitor 80 mg daily, propranolol 80 mg p.o. b.i.d., duloxetine 60 mg daily, melatonin and warfarin 5 mg daily. SOCIAL HISTORY: He is a current every day smoker, 1 pack per day. REVIEW OF SYSTEMS: GASTROINTESTINAL: No fevers or chills. NEUROLOGIC: No seizures. Positive dizziness. HEMATOLOGIC: No anemia. MUSCULOSKELETAL: [place] [address] CONSULTATION Name: ENRICO LEÓN Room: [address]#: [id number] Admission: 12/04/18 Attend Phys: Tony Cerda MD Discharge: 12/06/18 Date of : 42 Report #: [id number] CARDIOVASCULAR: No chest pain. No palpitations. PSYCHIATRIC: No depression or anxiety. EYES: Denies any blurred vision or loss of vision. Throat, no dysphagia. PHYSICAL EXAMINATION: VITAL SIGNS: Blood pressure is 140/46; pulse is 77, in atrial fibrillation and respiratory rate is 19. GENERAL: This is a pleasant elderly male who is very poor historian. HEENT: Unremarkable. He is very hard of hearing. NECK: Supple. No jugular venous distention. No bruits. CARDIOVACUALR EXAMINATION: Irregular. There are mechanical heart sounds. LUNGS: Clear to auscultation. ABDOMEN: Nontender. EXTREMITIES: There is no peripheral edema. NEUROLOGIC: There are no focal deficits. DIAGNOSTIC DATA: Electrocardiogram demonstrates a heart rate of 56, in AFib with a mild IVCD for evidence of a prior old inferior [place]. No dynamic ST-T wave abnormalities. LABORATORY DATA: Hemoglobin is 14.4. Sodium is 139, potassium is 4.8, chloride is 102, BUN 15, creatinine is 1.1 and glucose was 345. Troponin I is 0.06 x 2 sets. ProBNP is 1042. LDL cholesterol is 49, total cholesterol is 104. INR currently is 1.7; on admission, it was 2.4. IMPRESSION: 1. Bradycardia. I would hold his beta blockers for the time being. 2. Mild sick sinus syndrome. He will need to follow up closely with Dr. Reynolds within the next month for another heart rate check. 3. Atrial fibrillation. This is likely persistent. I want to continue with current medical therapy, but hold his beta blockers. 4. Status post aortic valve replacement. His echocardiogram was fairly unremarkable, without evidence of prosthetic dysfunction and grossly normal LV systolic function. We will continue with warfarin. He is instructed to follow up with Dr. Reynolds within the next month. <ELECTRONICALLY SIGNED> By: Yaya Pacheco MD, FACC 12/07/18 1340 1202 1302Yaya Pacheco MD, FACC /nt
== END 2018-12-06 12:35 | disposition home health service (06) | DRG 308 ==
LOC: M.ERS 16:09 → M.TBA-ER 17:07 → M.2W 17:07
PROVIDERS: Family Medicine; ADMIT Internal Medicine
DX: I49.5 Sick sinus syndrome (principal); G93.41 Metabolic encephalopathy; R65.10 Systemic inflammatory response syndrome (SIRS) of non-infectious origin without acute organ dysfunction; I25.10 Atherosclerotic heart disease of native coronary artery without angina pectoris; F17.210 Nicotine dependence, cigarettes, uncomplicated; J20.9 Acute bronchitis, unspecified; M19.90 Unspecified osteoarthritis, unspecified site; E11.22 Type 2 diabetes mellitus with diabetic chronic kidney disease; H91.90 Unspecified hearing loss, unspecified ear; Z79.82 Long term (current) use of aspirin; Z79.899 Other long term (current) drug therapy; Z95.2 Presence of prosthetic heart valve; Z88.0 Allergy status to penicillin; Z88.8 Allergy status to other drugs, medicaments and biological substances; Z79.01 Long term (current) use of anticoagulants

== ENCOUNTER 2019-01-13 18:34 | Inpatient (IN) | payer BC ==
[~2019-01-13] VITALS: Ht 172.7 cm; Wt 94.8 kg
[~2019-01-13 18:34] MED LIST changes: +DOXYCYCLINE 10100 MG PO
[2019-01-13 18:38] VITALS: BP 149/74
[2019-01-13 19:01] LABS: HEMATOCRIT 46.7 % (42.0-52.0); HEMOGLOBIN 16.1 gm/dL (14.0-18.0); MCH 33.6 pg (26.0-34.0); MCHC 34.4 g/dL (28.0-37.0); MCV 97.6 fL (80.0-100.0); NUCLEATED RBCS 0 /100WBC; PLATELET COUNT* 223 thou/uL (150-400); RBC 4.79 mil/uL (4.50-6.00); RDW-CV 14.4 % (10.5-14.5); WBC 7.2 thou/uL (4.0-11.0)
[2019-01-13 19:12] LABS: APTT 37.3 Seconds (25.0-31.3); INR 2.4; PROTIME 24.9 Seconds (9.20-11.50)
[2019-01-13 19:21] LABS: ACETAMINOPHEN < 2 ug/mL (10-30); ALCOHOL < 10 mg/dL (<10); ANION GAP 11 mmol/L (7-16); BUN 18 mg/dL (7-18); CALCIUM 9.4 mg/dL (8.5-10.1); CHLORIDE 98 mmol/L (98-107); CO2 26 mmol/L (21-32); CREATININE 1.2 mg/dL (0.6-1.3); GLUCOSE 290 mg/dL (70-99); POTASSIUM 4.2 mmol/L (3.5-5.1); SALICYLATE 4.4 mg/dL (2.8-20.0); SODIUM 135 mmol/L (136-145); TROPONIN-I LEVEL <0.06 ng/mL (<0.06)
[2019-01-13] MEDS ORDERED: COUMADIN 5 MG TA5 M1 PO ×2 (19:21→19:22)
[2019-01-13 19:23] LABS: ALBUMIN 3.6 g/dL (3.4-5.0); ALKALINE PHOSPHATASE 86 U/L (46-116); LIPASE 76 U/L (73-393); NT-PRO BRAIN NAT PEPTIDE 629 pg/mL (<300); SGOT 20 U/L (15-37); SGPT 25 U/L (30-65); TOTAL BILIRUBIN 0.5 mg/dL (<0.1-1.0); TOTAL PROTEIN 7.8 g/dL (6.4-8.2)
[2019-01-13 19:39] LABS: ABSOLUTE LYMPHOCYTES 0.9 thou/uL (0.8-5.3); ABSOLUTE MONOCYTES 0.4 thou/uL (0.0-1.2); ABSOLUTE NEUTROPHILS 5.9 thou/uL (1.6-8.1); PLATELET ESTIMATE ADEQUATE
[2019-01-13 20:30] LABS: URINE BILIRUBIN NEGATIVE (Negative); URINE BLOOD NEGATIVE (Negative); URINE CLARITY CLEAR; URINE COLOR YELLOW; URINE GLUCOSE-RANDOM 3+ (Negative); URINE KETONES TRACE (Negative); URINE LEUKOCYTES-REFLEX NEGATIVE (Negative); URINE NITRITE-REFLEX NEGATIVE (Negative); URINE PROTEIN TRACE (Negative); URINE UROBILINOGEN 0.2 E.U./dl (0.2-1.0)
[2019-01-13 20:38] LABS: AMP/METHAMP Negative (Negative); BARBITURATES POSITIVE (Negative); BENZODIAZEPINES Negative (Negative); COCAINE Negative (Negative); METHADONE Negative (Negative); OPIATES POSITIVE (Negative); PCP Negative (Negative); THC Negative (Negative)
[2019-01-13 20:55] LABS: BE -1.2 mmol/L (-2 to +3); PO2 VENOUS 39.5 mmHg (35.0-45.0)
[2019-01-14 02:00] VITALS: BP 120/84
[2019-01-14 07:01] VITALS: BP 117/62
[2019-01-14 08:07] VITALS: BP 117/62
[2019-01-14 08:25] VITALS: BP 127/59
[2019-01-14 09:03] LABS: HEMATOCRIT 42.3 % (42.0-52.0); HEMOGLOBIN 14.2 gm/dL (14.0-18.0); MCH 32.8 pg (26.0-34.0); MCHC 33.5 g/dL (28.0-37.0); MPV 8.1 fl. (7.2-11.1); RBC 4.31 mil/uL (4.50-6.00); RDW-CV 14.4 % (10.5-14.5); WBC 6.3 thou/uL (4.0-11.0)
[2019-01-14 09:04] LABS: CALCIUM 8.8 mg/dL (8.5-10.1); POTASSIUM 4.3 mmol/L (3.5-5.1); TOTAL BILIRUBIN 0.4 mg/dL (<0.1-1.0); TOTAL PROTEIN 6.2 g/dL (6.4-8.2)
--- NOTE | 2019-01-14 09:39 | EKG ---
[place] [address] ELECTROCARDIOGRAM REPORT Name: LEÓNENRICO DIAZ Room: [address] ADM IN .R.#: [id number] Admission: 01/13/19 Attend Phys: Rimma Lopez MD Discharge: Date of : 42 Report #: [id number] THIS REPORT FOR: //name// [facility] ED Test Date: 2019-01-13 Test Time: 18:45:47 Pat Name: ENRICO LEÓN Department: Room: [facility] Gender: M Tree Topper: : 1940 Requested By: Kelsey Murray Order Number: [id number] MD: Ezequiel Gonzalez Measurements Intervals [place] Rate: 68 P: [place]: QRS: -39 QRSD: 122 T: 23 QT: 442 QTc: 471 Interpretive Statements Atrial fibrillation Nonspecific IVCD with LAD consider inferior infarct, old Compared to ECG 12/04/2018 16:32:59 no change Electronically Signed On 01-14-2019 9:39:43 RN APPEALS by Ezequiel Gonzalez [email or web address] <ELECTRONICALLY SIGNED> By: Ezequiel Gonzalez MD, FAC 01/14/19 0939 1845 1845 Ezequiel Gonzalez MD, [facility] /EPI
[2019-01-14 13:35] LABS: CALCIUM 8.7 mg/dL (8.5-10.1); CREATININE 1.1 mg/dL (0.6-1.3); MAGNESIUM 1.8 mg/dL (1.8-2.4)
[2019-01-14 16:52] VITALS: BP 134/78
[2019-01-14 20:00] VITALS: BP 127/82
[2019-01-15 05:03] LABS: ABSOLUTE BASOPHILS 0.1 thou/uL (0.0-0.2); ABSOLUTE EOSINOPHILS 0.1 thou/uL (0.0-0.7); ABSOLUTE LYMPHOCYTES 1.4 thou/uL (0.8-5.3); ABSOLUTE MONOCYTES 0.6 thou/uL (0.0-1.2); ABSOLUTE NEUTROPHILS 3.9 thou/uL (1.6-8.1); BASOPHILS 0.9 %; EOSINOPHILS 2.3 %; HEMATOCRIT 40.1 % (42.0-52.0); HEMOGLOBIN 13.4 gm/dL (14.0-18.0); LYMPHOCYTES 23.5 %; MCHC 33.5 g/dL (28.0-37.0); MCV 98.6 fL (80.0-100.0); MONOCYTES 10.1 %; MPV 8.1 fl. (7.2-11.1); NUCLEATED RBCS 0 /100WBC; PLATELET COUNT* 197 thou/uL (150-400); POLYS 63.2 %; RBC 4.07 mil/uL (4.50-6.00); WBC 6.1 thou/uL (4.0-11.0)
[2019-01-15 05:12] LABS: CALCIUM 8.3 mg/dL (8.5-10.1); CREATININE 0.9 mg/dL (0.6-1.3)
[2019-01-15 08:30] VITALS: BP 151/67
[2019-01-15 16:24] VITALS: BP 118/66
[2019-01-15 19:45] VITALS: BP 127/59
[2019-01-16 07:40] VITALS: BP 136/60
[2019-01-16 13:35] VITALS: BP 136/60
[2019-01-16] MEDS ORDERED: FLAGYL500 M1 PO (13:41)
[2019-01-16] MEDS ORDERED: CIPRO500 MG PO (13:42)
[2019-01-16 14:40] VITALS: BP 136/60
[2019-01-16 15:19] VITALS: BP 148/78
[2019-01-16 17:02] VITALS: BP 136/60
== END 2019-01-16 17:00 | disposition home health service (06) | DRG 392 ==
LOC: M.ERS 18:34 → M.3W 21:37 → M.TBA-ER 21:37 → M.3W 01-14 08:19
PROVIDERS: Internal Medicine; Nurse Practitioner Family; ADMIT Internal Medicine
DX: K52.9 Noninfective gastroenteritis and colitis, unspecified (principal); F17.210 Nicotine dependence, cigarettes, uncomplicated; E86.0 Dehydration; I48.91 Unspecified atrial fibrillation; Z95.5 Presence of coronary angioplasty implant and graft; Z82.49 Family history of ischemic heart disease and other diseases of the circulatory system; Z79.01 Long term (current) use of anticoagulants; Z79.82 Long term (current) use of aspirin; Z79.899 Other long term (current) drug therapy; Z88.0 Allergy status to penicillin; Z88.8 Allergy status to other drugs, medicaments and biological substances

== ENCOUNTER 2019-02-04 09:38 | Emergency (ER) | payer BC ==
[~2019-02-04] VITALS: Ht 172.7 cm; Wt 93.9 kg
[~2019-02-04 09:38] MED LIST changes: +FLAGYL500 M1 PO
[2019-02-04 10:26] LABS: ABSOLUTE BASOPHILS 0.1 thou/uL (0.0-0.2); ABSOLUTE EOSINOPHILS 0.1 thou/uL (0.0-0.7); ABSOLUTE MONOCYTES 0.4 thou/uL (0.0-1.2); ABSOLUTE NEUTROPHILS 3.8 thou/uL (1.6-8.1); BASOPHILS 1.4 %; EOSINOPHILS 2.5 %; HEMATOCRIT 45.2 % (42.0-52.0); HEMOGLOBIN 15.2 gm/dL (14.0-18.0); LYMPHOCYTES 18.6 %; MCH 33.2 pg (26.0-34.0); MCHC 33.7 g/dL (28.0-37.0); MCV 98.4 fL (80.0-100.0); MONOCYTES 7.5 %; NUCLEATED RBCS 0 /100WBC; PLATELET COUNT* 222 thou/uL (150-400); RBC 4.59 mil/uL (4.50-6.00); RDW-CV 14.2 % (10.5-14.5); WBC 5.4 thou/uL (4.0-11.0)
[2019-02-04 10:37] LABS: APTT 32.5 Seconds (25.0-31.3)
[2019-02-04 10:44] LABS: ALBUMIN 3.4 g/dL (3.4-5.0); ALKALINE PHOSPHATASE 81 U/L (46-116); ANION GAP 8 mmol/L (7-16); BUN 20 mg/dL (7-18); CALCIUM 8.8 mg/dL (8.5-10.1); CHLORIDE 100 mmol/L (98-107); CO2 27 mmol/L (21-32); GLUCOSE 273 mg/dL (70-99); LIPASE 83 U/L (73-393); POTASSIUM 4.1 mmol/L (3.5-5.1); SGOT 19 U/L (15-37); SGPT 19 U/L (30-65); SODIUM 135 mmol/L (136-145); TOTAL BILIRUBIN 0.6 mg/dL (<0.1-1.0); TOTAL PROTEIN 7.3 g/dL (6.4-8.2); TROPONIN-I LEVEL <0.06 ng/mL (<0.06)
[2019-02-04 11:01] LABS: INR 1.4; PROTIME 14.7 Seconds (9.20-11.50)
[2019-02-04 13:05] LABS: URINE BILIRUBIN NEGATIVE (Negative); URINE BLOOD NEGATIVE (Negative); URINE CLARITY CLEAR; URINE COLOR YELLOW; URINE GLUCOSE-RANDOM 2+ (Negative); URINE KETONES NEGATIVE (Negative); URINE LEUKOCYTES-REFLEX NEGATIVE (Negative); URINE NITRITE-REFLEX NEGATIVE (Negative); URINE PROTEIN NEGATIVE (Negative); URINE UROBILINOGEN 0.2 E.U./dl (0.2-1.0)
[2019-02-04] MEDS ORDERED: ONDANSETRON HCL4 M2 PO (13:10)
[2019-02-04] MEDS ORDERED: ANTIVERT25 MG PO (13:10)
[2019-02-04 13:19] VITALS: BP 129/73
--- NOTE | 2019-02-04 17:45 | EKG ---
[place] [address] ELECTROCARDIOGRAM REPORT Name: ENRICO LEÓN Room: 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 : 1940 Requested By: Kelsey Murray Order Number: [id number] MD: Juan Russo Measurements Intervals [place] Rate: 74 P: [place]: QRS: -40 QRSD: 114 T: 34 QT: 422 QTc: 469 Interpretive Statements Atrial fibrillation Borderline IVCD with LAD Abnormal R-wave progression, late transition Inferior infarct, old Baseline wander in lead(s) V5,V6 Compared to ECG 01/13/2019 18:45:47 No significant changes Electronically Signed On 02-04-2019 17:45:03 CDT by Juan Russo [email or web address] <ELECTRONICALLY SIGNED> By: Juan Russo MD, FACC 02/04/19 1745 1030 1030 Juan Russo MD, FAC /EPI
== END 2019-02-04 13:20 | disposition home or self-care (01) ==
LOC: M.ERS 09:38
PROVIDERS: Nurse Practitioner Family
DX: R11.2 Nausea with vomiting, unspecified (principal); R42 Dizziness and giddiness; R79.1 Abnormal coagulation profile; I48.91 Unspecified atrial fibrillation; E11.9 Type 2 diabetes mellitus without complications; F17.210 Nicotine dependence, cigarettes, uncomplicated; Z88.0 Allergy status to penicillin; Z88.8 Allergy status to other drugs, medicaments and biological substances; Z95.5 Presence of coronary angioplasty implant and graft

== ENCOUNTER 2020-05-28 21:09 | Inpatient (IN) | payer BC ==
[~2020-05-28] VITALS: Ht 172.7 cm; Wt 88.9 kg
[~2020-05-28 21:09] MED LIST changes: +ANTIVERT25 MG PO; +ONDANSETRON HCL4 M2 PO
[2020-05-28 21:39] VITALS: BP 154/79
[2020-05-28] MEDS ORDERED: ELIQUIS5 MG PO (22:11)
[2020-05-28] MEDS ORDERED: OXYBUTYNIN 5 MG5 M2 PO (22:12)
[2020-05-28] MEDS ORDERED: LINZESS145 MCG PO (22:13)
[2020-05-28 22:26] LABS: ABSOLUTE LYMPHOCYTES 0.5 thou/uL (0.8-5.3); ABSOLUTE MONOCYTES 0.6 thou/uL (0.0-1.2); BASOPHILS 0.8 %; EOSINOPHILS 0.4 %; HEMOGLOBIN 14.5 gm/dL (14.0-18.0); LYMPHOCYTES 10.4 %; MCH 34.2 pg (26.0-34.0); MCHC 34.7 g/dL (28.0-37.0); MCV 98.8 fL (80.0-100.0); MPV 8.2 fl. (7.2-11.1); NUCLEATED RBCS 0 /100WBC; PLATELET COUNT* 165 thou/uL (150-400); POLYS 76.4 %; RBC 4.25 mil/uL (4.50-6.00); RDW-CV 13.3 % (10.5-14.5); WBC 5.2 thou/uL (4.0-11.0)
[2020-05-28 22:34] LABS: CALCIUM 8.5 mg/dL (8.5-10.1); CREATININE 1.5 mg/dL (0.6-1.3); POTASSIUM 3.6 mmol/L (3.5-5.1)
[2020-05-28 22:48] LABS: ALBUMIN 3.2 g/dL (3.4-5.0); TOTAL BILIRUBIN 0.4 mg/dL (<0.1-1.0); TOTAL PROTEIN 7.3 g/dL (6.4-8.2)
--- NOTE | 2020-05-28 23:54 | NUR ---
REBECA NOTIFIED UPON PT RETURN FROM CT.PT CONNECTED TO PULSE OX HE WAS PRIOR TO CT
[2020-05-29 02:04] VITALS: BP 116/53
[2020-05-29 02:31] VITALS: BP 116/53
[2020-05-29 08:00] VITALS: BP 135/69
[2020-05-29 09:04] LABS: CALCIUM 8.3 mg/dL (8.5-10.1); CREATININE 1.3 mg/dL (0.6-1.3); MAGNESIUM 1.5 mg/dL (1.8-2.4); POTASSIUM 3.6 mmol/L (3.5-5.1)
[2020-05-29 11:59] VITALS: BP 125/73
--- NOTE | 2020-05-29 13:24 | EKG ---
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 : 1940 Requested By: Koby Amaya Order Number: [id number] MD: Toñito Sheridan Measurements Intervals [place] Rate: 85 P: [place]: QRS: -44 QRSD: 114 T: 49 QT: 364 QTc: 433 Interpretive Statements Atrial fibrillation Ventricular premature complex Borderline IVCD with LAD Borderline low voltage, extremity leads Abnormal R-wave progression, late transition Compared to ECG 02/04/2019 10:30:24 Ventricular premature complex(es) now present Myocardial infarct finding no longer present Electronically Signed On 05-29-2020 13:24:19 CDT by Toñito Sheridan [email or web address] <ELECTRONICALLY SIGNED> By: Toñito Sheridan MD, [facility] 05/29/20 1324 41 41 Toñito Sheridan MD, [facility] /EPI
--- NOTE | 2020-05-29 13:45 | NUR ---
CM spoke with Pt's son, Tae, via phone. Pt is [place]. Pt resides at home with Tae. Independent, can ambulate short distances, uses a golf cart for community distances. Pt has a walker and cane. Hx of [facility]. Hx of [facility] skilled. Son requested that therapy consults be placed to determine if Pt is safe to dc home. RNCM to put in therapy evals. Plan home with HH vs SNF. Following.
[2020-05-29 16:25] VITALS: BP 116/65
--- NOTE | 2020-05-29 16:36 | NUR ---
PATIENT RESTING IN BED. VSS AND PATINET IN NO APPARENT DISTRESS AT THIE TIME. HE REPORTS OCCASSIONAL BOWEL DISCOMFORT AND INCONTINENCE. HIS SON CALLED TODAY TO REPORT THAT THE PATIENT HAS RECENTLY HAD HIS METFORMIN INCREASED AND THAT THE PATIENT HAS BEEN TAKING LINZESS REGULARLY EVEN THOUGH HE HAS NOT SUFFERED FROM CONSTIPATION IN OVER A YEAR. HOURLY ROUDNING COMPLETED FOR PATIENT SAFETY.
[2020-05-29 21:00] VITALS: BP 108/57
[2020-05-30] VITALS: BP 110/59
[2020-05-30 04:00] VITALS: BP 124/68
[2020-05-30 05:04] LABS: HEMATOCRIT 36.9 % (42.0-52.0); HEMOGLOBIN 12.8 gm/dL (14.0-18.0); MCH 34.2 pg (26.0-34.0); MCHC 34.7 g/dL (28.0-37.0); MCV 98.6 fL (80.0-100.0); MPV 8.4 fl. (7.2-11.1); RBC 3.74 mil/uL (4.50-6.00); RDW-CV 13.2 % (10.5-14.5); WBC 5.8 thou/uL (4.0-11.0)
--- NOTE | 2020-05-30 05:17 | NUR ---
NO ACUTE CHANGES THROUGHOUT SHIFT. VSS. ALL ROUNDINGS COMPLETED, ALL NEEDS MET, FULL ASSESSMENT COMPLETED CHARTED.
[2020-05-30 05:30] LABS: CALCIUM 7.9 mg/dL (8.5-10.1); CREATININE 1.1 mg/dL (0.6-1.3); MAGNESIUM 1.5 mg/dL (1.8-2.4); POTASSIUM 3.2 mmol/L (3.5-5.1)
[2020-05-30 08:30] VITALS: BP 145/61
[2020-05-30 12:12] VITALS: BP 123/66
[2020-05-30 16:06] VITALS: BP 123/69
--- NOTE | 2020-05-30 20:14 | NUR ---
I ASSUMED CARE OF THE PATIENT AT 0700. HE IS ALERT AND ORIENTED X4, BUT VERY HARD OF HEARING. BED IS IN THE LOW LOCKED POSITION AND CALL LIGHT IS IN REACH. HOURLY ROUNDING IS COMPLETED AND PATIENT NEEDS ARE MET. PAIN IS DENIED. HE HAD A TOTAL OF 7 COMPLETE LINEN CHANGES D/T INCONT OF BOWEL. HE ALSO HAD AN ACCIDENT WHILE WALKING THE [place] WITH PT. SON CAME FOR A VISIT. BLOOD SUGAR WAS MONITORED. ISOLATION WAS MAINTAINED AND A STOOL SAMPLE WAS SENT. NEW IV WAS PLACED IN THE LEFT FOREARM. WILL CONTINUE TO MONITOR.
[2020-05-30 21:10] VITALS: BP 125/44
[2020-05-31] VITALS: BP 113/62
[2020-05-31 04:00] VITALS: BP 152/70
--- NOTE | 2020-05-31 04:41 | NUR ---
NO ACUTE CHANGES THROUGHOUT SHIFT. ALL ROUNDINGS COMPLETED, ALL NEEDS MET, FULL ASSESSMENT COMPLETED CHARTED.
[2020-05-31 04:55] LABS: MAGNESIUM 1.5 mg/dL (1.8-2.4); POTASSIUM 3.1 mmol/L (3.5-5.1)
[2020-05-31 08:00] VITALS: BP 136/73
[2020-05-31 12:54] VITALS: BP 123/73
[2020-05-31 17:01] VITALS: BP 129/72
--- NOTE | 2020-05-31 18:57 | NUR ---
PT UP TO BSC WITH ASSISTANCE TODAY, BOWEL MOVEMENTS SLOWING AND STARTING TO BE MORE SOFT THAN LIQUID. PT TOLERATING FLD. VSS. WILL CONTINUE TO MONITOR.
[2020-05-31 20:00] VITALS: BP 144/74
[2020-06-01] VITALS: BP 121/53
[2020-06-01 04:00] VITALS: BP 122/59
[2020-06-01 05:08] LABS: HEMOGLOBIN 12.7 gm/dL (14.0-18.0); MCH 34.3 pg (26.0-34.0); MCHC 35.2 g/dL (28.0-37.0); MCV 97.6 fL (80.0-100.0); MPV 8.3 fl. (7.2-11.1); RBC 3.69 mil/uL (4.50-6.00); RDW-CV 13.4 % (10.5-14.5); WBC 6.1 thou/uL (4.0-11.0)
[2020-06-01 05:24] LABS: ALBUMIN 2.3 g/dL (3.4-5.0); CALCIUM 8.1 mg/dL (8.5-10.1); MAGNESIUM 1.6 mg/dL (1.8-2.4); POTASSIUM 3.6 mmol/L (3.5-5.1); TOTAL BILIRUBIN 0.3 mg/dL (<0.1-1.0); TOTAL PROTEIN 5.8 g/dL (6.4-8.2)
[2020-06-01 08:00] VITALS: BP 184/58
[2020-06-01 12:22] VITALS: BP 133/75
--- NOTE | 2020-06-01 12:40 | NUR ---
ASSUMED CARE OF PATIENT THIS AM AT 0730. PATIENT IS SLEEPING MOST OF THE AM. HE DENIES PAIN. PATIENT HAS BEEN INCONTINENT OF URINE. NO STOOLS NOTED TODAY. HE IS TAKING HIS MEALS WELL. TELE SHOWS A FIB WITH OCCASIONAL VENTRICULAR ECTOPIES. PATIENT CONTINUES IN CONTACT ISOLATION PENDING C DIF RESULTS. WILL CONTINUE TO MONITOR. NO FALLS OR INJURY.
--- NOTE | 2020-06-01 16:13 | NUR ---
Plan dc to home pending [facility]diff results with [facility]
[2020-06-01 17:05] VITALS: BP 141/61
[2020-06-01 20:00] VITALS: BP 148/76
[2020-06-02] VITALS: BP 161/64
[2020-06-02 04:00] VITALS: BP 157/81
[2020-06-02 07:56] LABS: MAGNESIUM 1.7 mg/dL (1.8-2.4); POTASSIUM 4.1 mmol/L (3.5-5.1)
[2020-06-02 08:00] VITALS: BP 118/96
[2020-06-02] MEDS ORDERED: FLAGYL500 M1 PO (10:07)
[2020-06-02] MEDS ORDERED: LEVAQUIN 500 M500 M1 PO (10:07)
[2020-06-02 11:52] VITALS: BP 118/96
[2020-06-02 12:00] VITALS: BP 140/63
[2020-06-02] MEDS ORDERED: TORSEMIDE10 MG PO (13:19)
[2020-06-02 14:21] VITALS: BP 118/96
--- NOTE | 2020-06-02 14:37 | NUR ---
CM INFORMED BY RN IN-CHARGE OF PT THAT THE PT IS MEDICALLY STABLE TO D/C TODAY. D/C ORDERS WRITTEN AND PTTP D/C HOME WITH HH. PT SON REQUEST HH WITH PREVIOUS HH [facility]. CM CONTATED [facility] AND FAXED PT CLINCAL INFO/REFERRAL AND D/C ORDERS. [facility] ACCEPTED PT AND WILL CONTACT PT'S SON TO ARRANGE TIME TO VISIT. PT TO D/C TO SON'S (LIZZY'S) HOME IN [place] TODAY. CM WILL REMAIN AVAILABLE TO ASSIST AND FOLLOW NEEDED. [facility] PHONE: [phone] FAX: [phone] [facility] PHONE: [phone]
--- NOTE | 2020-06-02 15:28 | NUR ---
VS CHARTED, AFIB ON TELE, ROOM AIR, A&OX4- EXTREMELY HARD OF HEARING, ACCUCHECKS, VOIDS IN URINAL, HOURLY ROUNDING PERFORMED, POSSESSIONS AND CALL LIGHT WITHIN REACH, UP WITH ONE- BILATERAL KNEE REPLACEMENTS CAUSE CHRONIC PAIN, REC DISCHARGE ORDERS, REVIEWED WITH PATIENT, SCRIPTS CALLED INTO TO [facility] FOR PATIENT, CARE NOTES GIVEN, PT TAKEN IN WC BY RAN TO FRONT DOOR, PICKED UP BY SON IN FAMILY CAR
== END 2020-06-02 14:50 | disposition home health service (06) | DRG 371 ==
LOC: M.ERS 21:09 → M.TBA-ER 05-29 00:11 → M.2W 05-29 00:11
PROVIDERS: Emergency Medicine Emergency Medical Services; Internal Medicine; ADMIT Family Medicine; ATTEND Family Medicine
DX: A04.9 Bacterial intestinal infection, unspecified (principal); N17.0 Acute kidney failure with tubular necrosis; D68.69 Other thrombophilia; K57.30 Diverticulosis of large intestine without perforation or abscess without bleeding; I25.10 Atherosclerotic heart disease of native coronary artery without angina pectoris; E86.9 Volume depletion, unspecified; G89.29 Other chronic pain; G47.00 Insomnia, unspecified; E66.9 Obesity, unspecified; T38.3X5A Adverse effect of insulin and oral hypoglycemic [antidiabetic] drugs, initial encounter; E11.9 Type 2 diabetes mellitus without complications; E86.0 Dehydration; I48.91 Unspecified atrial fibrillation; F17.210 Nicotine dependence, cigarettes, uncomplicated; Z96.653 Presence of artificial knee joint, bilateral; Z20.828 Contact with and (suspected) exposure to other viral communicable diseases; Z68.29 Body mass index [BMI] 29.0-29.9, adult; Y92.89 Other specified places as the place of occurrence of the external cause; Z95.1 Presence of aortocoronary bypass graft; Z95.4 Presence of other heart-valve replacement; Z95.5 Presence of coronary angioplasty implant and graft; Z79.01 Long term (current) use of anticoagulants; Z79.84 Long term (current) use of oral hypoglycemic drugs; Z79.899 Other long term (current) drug therapy; Z88.0 Allergy status to penicillin; Z88.8 Allergy status to other drugs, medicaments and biological substances

== ENCOUNTER 2021-03-03 02:19 | Observation (INO) | payer BC ==
[~2021-03-03] VITALS: Ht 172.7 cm; Wt 91.2 kg
[~2021-03-03 02:19] MED LIST changes: +ELIQUIS5 MG PO; +LEVAQUIN 500 M500 M1 PO; +TORSEMIDE10 MG PO
[2021-03-03 02:21] VITALS: BP 145/65
[2021-03-03 03:02] LABS: ABSOLUTE BASOPHILS 0.1 thou/uL (0.0-0.2); ABSOLUTE EOSINOPHILS 0.2 thou/uL (0.0-0.7); ABSOLUTE LYMPHOCYTES 2.1 thou/uL (0.8-5.3); ABSOLUTE MONOCYTES 0.7 thou/uL (0.0-1.2); ABSOLUTE NEUTROPHILS 4.9 thou/uL (1.6-8.1); BASOPHILS 1.2 %; EOSINOPHILS 2.8 %; HEMATOCRIT 39.1 % (42.0-52.0); HEMOGLOBIN 12.9 gm/dL (14.0-18.0); LYMPHOCYTES 26.3 %; MCH 32.2 pg (26.0-34.0); MCHC 33.1 g/dL (28.0-37.0); MCV 97.3 fL (80.0-100.0); MONOCYTES 9.1 %; MPV 7.8 fl. (7.2-11.1); NUCLEATED RBCS 0 /100WBC; PLATELET COUNT* 208 thou/uL (150-400); POLYS 60.6 %; RBC 4.01 mil/uL (4.50-6.00); RDW-CV 13.3 % (10.5-14.5); WBC 8.1 thou/uL (4.0-11.0)
[2021-03-03 03:12] LABS: CALCIUM 9.1 mg/dL (8.5-10.1); CREATININE 1.2 mg/dL (0.6-1.3); POTASSIUM 4.4 mmol/L (3.5-5.1)
[2021-03-03 03:14] LABS: PROTIME 10.9 Seconds (9.20-11.50)
[2021-03-03 03:23] LABS: ALBUMIN 3.3 g/dL (3.4-5.0); MAGNESIUM 1.7 mg/dL (1.8-2.4); TOTAL BILIRUBIN 0.4 mg/dL (<0.1-1.0); TOTAL PROTEIN 6.9 g/dL (6.4-8.2)
[2021-03-03 04:40] VITALS: BP 118/71
[2021-03-03 05:09] LABS: INFLUENZA A ANTIGEN Negative (Negative); INFLUENZA B ANTIGEN Negative (Negative)
[2021-03-03 07:45] VITALS: BP 126/58
--- NOTE | 2021-03-03 10:07 | NUR ---
CM SPOKE TO THE PT TO DISCUSS CM ASSESSMENT. PT [place] AND UNABLE TO ANSEWER ASSESSMENT QUESTIONS. CM CONTACTED PT'S SON LIZZY AND HE ASSIST WITH ASSESSEMENT. PT'S SON INFORMS THAT THE PT RESIDES AT HOME WITH HIS OTHER SON. PT USES A WALKER OR CANE FOR MOBILTY, BUT ALSO USES A GOLF CART IN THE COMMUNITY TO GO TO HIS SONS [employer]UR[employer] OR THE [employer] [facility]. PT HAS A HOME CAREGIVER WHO ASSSIT WITH CLEANING THE HOME AND BATHING/DRESSING. PT HAS PAST HX OF HH WITH [facility]. PT HAS PAST HX OF SNF AT [facility]. PT'S SON INFORMS THAT HE WILL NOT HAVE HH AT D/C, THE PT WILL NOT BE HOMEBOUND AND WILL CONTINUE TO GO OUT ON HIS GOLF CART IN THE COMMUNITY. PT'S SON STATES 'THAT IS WHAT KEEPS HIM ACTIVE'. CM WILL REMAIN AVAILABLE TO ASSIST AND FOLLOW NEEDED.
--- NOTE | 2021-03-03 11:15 | EKG ---
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: [place] : 1940 Requested By: Lyndsey Mccloud Order Number: [id number] MD: Ezequiel Gonzalez Measurements Intervals [place] Rate: 65 P: [place]: QRS: -38 QRSD: 114 T: 57 QT: 412 QTc: 429 Interpretive Statements Atrial fibrillation Borderline IVCD with LAD Compared to ECG 05/28/2020 21:42:39 Ventricular premature complex(es) no longer present Electronically Signed On 03-03-2021 11:15:23 CDT by Ezequiel Gonzalez [email or web address] <ELECTRONICALLY SIGNED> By: Ezequiel Gonzalez MD, [facility] 03/03/21 1115 3 Ezequiel Gonzalez MD, [facility] /EPI
[2021-03-03 12:35] VITALS: BP 126/58
== END 2021-03-03 15:29 | disposition home or self-care (01) ==
LOC: M.ERS 02:19 → M.2W 04:05 → M.TBA-ER 04:05 → M.2W 04:50
PROVIDERS: Emergency Medicine; ADMIT Family Medicine; ATTEND Family Medicine
DX: R05 Cough (principal); R09.81 Nasal congestion; R09.89 Other specified symptoms and signs involving the circulatory and respiratory systems; Z20.822 Contact with and (suspected) exposure to COVID-19; R07.89 Other chest pain; I25.10 Atherosclerotic heart disease of native coronary artery without angina pectoris; I10 Essential (primary) hypertension; G89.29 Other chronic pain; E11.9 Type 2 diabetes mellitus without complications; F17.210 Nicotine dependence, cigarettes, uncomplicated; Z88.0 Allergy status to penicillin; Z88.8 Allergy status to other drugs, medicaments and biological substances

== ENCOUNTER 2021-05-21 12:26 | Emergency (ER) | payer BC ==
[~2021-05-21] VITALS: Ht 172.7 cm; Wt 99.8 kg
[2021-05-21] MEDS ORDERED: METFORMIN HCL500 M3 PO (13:28)
[2021-05-21] MEDS ORDERED: ONDANSETRON HCL4 M2 PO (13:28)
[2021-05-21] MEDS ORDERED: METFORMIN HCL500 MG PO (13:29)
[2021-05-21] MEDS ORDERED: SUPER THERAVIT1 EACH PO (13:30)
[2021-05-21] MEDS ORDERED: SUPER B-50 COM1 EACH PO (13:31)
[2021-05-21 13:43] LABS: HEMATOCRIT 42.3 % (42.0-52.0); HEMOGLOBIN 14.4 gm/dL (14.0-18.0); MCH 33.2 pg (26.0-34.0); MCHC 34.1 g/dL (28.0-37.0); MCV 97.3 fL (80.0-100.0); MPV 7.6 fl. (7.2-11.1); NUCLEATED RBCS 0 /100WBC; PLATELET COUNT* 221 thou/uL (150-400); RBC 4.35 mil/uL (4.50-6.00); RDW-CV 13.9 % (10.5-14.5); WBC 7.6 thou/uL (4.0-11.0)
[2021-05-21 14:01] LABS: CREATININE 1.2 mg/dL (0.6-1.3); POTASSIUM 4.8 mmol/L (3.5-5.1)
[2021-05-21 14:12] LABS: ALBUMIN 3.7 g/dL (3.4-5.0); MAGNESIUM 1.8 mg/dL (1.8-2.4); TOTAL BILIRUBIN 0.5 mg/dL (<0.1-1.0); TOTAL PROTEIN 7.6 g/dL (6.4-8.2)
[2021-05-21 14:25] LABS: ABSOLUTE EOSINOPHILS 0.1 thou/uL (0.0-0.7); ABSOLUTE LYMPHOCYTES 0.5 thou/uL (0.8-5.3); ABSOLUTE NEUTROPHILS 7.1 thou/uL (1.6-8.1); PLATELET ESTIMATE ADEQUATE
[2021-05-21] MEDS ORDERED: ZOFRAN ODT4 MG DISSOLVE (16:53)
[2021-05-21 17:19] VITALS: BP 160/79
--- NOTE | 2021-05-21 17:19 | EKG ---
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: [facility] : 1940 Requested By: Koby Amaya Order Number: [id number] MD: Juan Russo Measurements Intervals [place] Rate: 75 P: [place]: QRS: -41 QRSD: 112 T: 45 QT: 412 QTc: 461 Interpretive Statements Atrial fibrillation Borderline IVCD with LAD Abnormal R-wave progression, late transition Baseline wander in lead(s) II,III,aVF Compared to ECG 03/03/2021 02:24:55 No significant changes Electronically Signed On 05-21-2021 17:19:00 CDT by Juan Russo [email or web address] <ELECTRONICALLY SIGNED> By: Juan Russo MD, FAC 05/21/21 1719 1254 1254 Juan Russo MD, [facility] /EPI
== END 2021-05-21 17:20 | disposition home or self-care (01) ==
LOC: M.ERS 12:26
PROVIDERS: Emergency Medicine Emergency Medical Services
DX: R11.2 Nausea with vomiting, unspecified (principal); E11.9 Type 2 diabetes mellitus without complications; I48.91 Unspecified atrial fibrillation; E66.9 Obesity, unspecified; I25.10 Atherosclerotic heart disease of native coronary artery without angina pectoris; F17.210 Nicotine dependence, cigarettes, uncomplicated; Z88.0 Allergy status to penicillin; Z88.8 Allergy status to other drugs, medicaments and biological substances; Z95.5 Presence of coronary angioplasty implant and graft; Z68.33 Body mass index [BMI] 33.0-33.9, adult